=== PATIENT | male | born 1990 | race African-American/Black ===

== ENCOUNTER 2016-10-22 18:20 | Emergency (ER) | payer SELFPAY ==
[2016-10-22] MEDS ORDERED: CEFAZOLIN 2 GM/D5W RTU 50 ML IV ONE (18:35)
[2016-10-22] MEDS ORDERED: CEFAZOLIN 2 GM/D5W RTU 2 GM/50 ML RTUPB IV ONE (18:35)
[2016-10-22] MEDS ORDERED: FENTANYL CITRATE INJ/PF 100 MCG/2 ML AMPUL IV PRN (18:35)
[2016-10-22] MEDS ORDERED: LIDOCAINE 1% INJ-PF (10 MG/ML) 30 ML SDV ONE (18:36)
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
[2016-10-22] MEDS ORDERED: ACETAMINOPHEN 325 MG TABLET PO ONE (20:19)
[2016-10-22] MEDS ORDERED: IBUPROFEN 600 MG TABLET PO ONE (20:19)
[2016-10-23 04:38] VITALS: BP 110/62
== END 2016-10-22 20:35 | disposition home or self-care (01) ==
LOC: ER 18:20
DX: S81.812D Laceration without foreign body, left lower leg, subsequent encounter (principal); X58.XXXD Exposure to other specified factors, subsequent encounter; F17.200 Nicotine dependence, unspecified, uncomplicated
CPT/HCPCS: 99284; 96365; 73552; 73590; J0690

== ENCOUNTER 2016-10-29 12:32 | Emergency (ER) | payer SELFPAY ==
[2016-10-29 13:08] VITALS: BP 133/81
--- NOTE | 2016-10-29 13:53 | ER Document Report ---
ED Suture/Wound Recheck - General Chief Complaint: Suture Removal Stated Complaint: LEFT LEG STITCH REMOVAL Time Seen by Provider: 10/29/16 13:40 Notes: 25 yo male here for wound check. sutures placed 1 week ago. mild focal tenderness. no fever. no drainage TRAVEL OUTSIDE OF THE [place] IN LAST 30 DAYS: No - HPI Treated in ED (days ago): 7 Previous ED treatment: Laceration repair Quality of pain: Achy Severity: Mild Context: Injury Symptoms since procedure: No complaints Exacerbated by: Walking Relieved by: Denies - Related Data Allergies/Adverse Reactions: No Known Allergies Allergy (Verified 10/29/16 13:04) Past Medical History - General Information source: Patient - Social History Smoking Status: Current Some Day Smoker Frequency of alcohol use: None Drug Abuse: None Lives with: Family Family History: Reviewed & Not Pertinent Patient has suicidal ideation: No Patient has homicidal ideation: No Renal/ Medical History: Denies: Hx Peritoneal Dialysis - Immunizations Hx Diphtheria, Pertussis, Tetanus Vaccination: No Review of Systems - Review of Systems Constitutional: No symptoms reported EENT: No symptoms reported Cardiovascular: No symptoms reported Respiratory: No symptoms reported Gastrointestinal: No symptoms reported Genitourinary: No symptoms reported Male Genitourinary: No symptoms reported Musculoskeletal: No symptoms reported Skin: No symptoms reported Hematologic/Lymphatic: No symptoms reported Neurological/Psychological: No symptoms reported Physical Exam - Vital signs Vitals: Temp Pulse Resp BP Pulse Ox 97.8 F 82 16 133/81 H 97 10/29/16 13:07 10/29/16 13:07 10/29/16 13:07 10/29/16 13:07 10/29/16 13:07 Interpretation: Normal - General General appearance: Appears well, Alert - HEENT Head: Normocephalic, Atraumatic Eyes: Normal Pupils: PERRL - Respiratory Respiratory status: No respiratory distress Chest status: Nontender Breath sounds: Normal Chest palpation: Normal - Cardiovascular Rhythm: Regular Heart sounds: Normal auscultation Murmur: No - Abdominal Inspection: Normal Distension: No distension Bowel sounds: Normal Tenderness: Nontender Organomegaly: No organomegaly - Back Back: Normal, Nontender - Extremities General upper extremity: Normal inspection, Nontender, Normal color, Normal ROM , Normal temperature General lower extremity: Normal inspection, Nontender, Normal color, Normal ROM , Normal temperature, Normal weight bearing. No: Annmarie's sign - Neurological Neuro grossly intact: Yes Cognition: Normal Orientation: AAOx4 Delmis Coma Scale Eye Opening: Spontaneous [place]mis Coma Scale Verbal: Oriented [place] Coma Scale Motor: Obeys Commands Delmis Coma Scale Total: 15 Speech: Normal Motor strength normal: LUE, RUE, LLE, RLE Sensory: Normal - Psychological Associated symptoms: Normal affect, Normal mood - Skin Skin Temperature: Warm Skin Moisture: Dry Skin Color: Normal Skin irregularity: Laceration - vertical mattress sutures intact. edges not appoximated but healing well. no s/s infection Course - Re-evaluation Re-evalutation: 10/29/16 13:50 healing well but due to amount of tension to wound, recommend recheck in 5 days for possible suture removal - Vital Signs Vital signs: Temp Pulse Resp BP Pulse Ox 97.8 F 82 16 133/81 H 97 10/29/16 13:07 10/29/16 13:07 10/29/16 13:07 10/29/16 13:07 10/29/16 13:07 Discharge - Discharge Clinical Impression: Laceration Condition: Stable Disposition: HOME, SELF-CARE Additional Instructions: continue wound care wash gently with antibacterial soap and water, antibiotic ointment return to ER in 5 days for recheck Forms: Return to Work
== END 2016-10-29 13:55 | disposition home or self-care (01) ==
LOC: ER 12:32
DX: S81.812D Laceration without foreign body, left lower leg, subsequent encounter (principal); X58.XXXD Exposure to other specified factors, subsequent encounter; F17.200 Nicotine dependence, unspecified, uncomplicated
CPT/HCPCS: 99281